=== PATIENT | female | born 1985 | race African-American/Black ===

== ENCOUNTER 2025-07-16 11:58 | Inpatient (IN) | payer OTHER ==
[~2025-07-16] VITALS: Ht 152.4 cm; Wt 97.3 kg
[2025-07-16 12:00] VITALS: O2SAT 99
[2025-07-16] MEDS: KETOROLAC 15MG/ML VIAL IV ONE (12:45)
[2025-07-16] MEDS ORDERED: MECLIZINE 25MG TABLET PO ONE (12:45)
[2025-07-16] MEDS ORDERED: CLONIDINE 0.2MG TABLET PO ONE (13:00)
[2025-07-16] MEDS: CLONIDINE 0.1MG TABLET PO SCH (13:00)
[2025-07-16] MEDS ORDERED: AZITHROMYCIN 500 MG TABLET PO ONE (13:00)
[2025-07-16 13:14] LABS: BASOPHILS % 0.8 % (0.0-2.0); EOSINOPHILS % 1.5 % (0.0-5.0); HEMATOCRIT. 33.9 % (36.0-48.0); HEMOGLOBIN. 11.0 g/dL (12.0-16.0); LYMPHOCYTES % 27.2 % (20.0-50.0); MEAN PLATELET VOLUME 7.3 fl (7.4-10.4); MONOCYTES % 7.6 % (2.0-8.0); NEUTROPHILS % 62.9 % (40.0-76.0); PLATELET 314 x1000/uL (130-400); RED BLOOD CELL COUNT 3.90 mill/uL (4.2-5.4); RED CELL DISTRIBUTION WIDTH 14.7 % (11.6-14.6)
[2025-07-16 13:29] LABS: CREATININE 0.9 mg/dL (0.6-1.0); UREA NITROGEN BLOOD 8 mg/dL (9-23)
[2025-07-16 13:30] LABS: TROPONIN I HIGH SENSITIVITY < 4 ng/L (3.0-34)
[2025-07-16 13:31] LABS: ASPARTATE AMINOTRANSFERASE 12 IU/L (<34); BILIRUBIN DIRECT 0.3 mg/dL (<=3.0); BILIRUBIN TOTAL 0.9 mg/dL (0.1-1.0); PROTEIN TOTAL 6.9 g/dL (6.0-8.3)
[2025-07-16 13:40] LABS: INR 1.0
[2025-07-16 13:45] LABS: CLARITY URINE CLEAR (CLEAR); COLOR URINE YELLOW (YELLOW); GLUCOSE URINE NEGATIVE (NEGATIVE); KETONES URINE NEGATIVE (NEGATIVE); LEUKOCYTE ESTERASE URINE NEGATIVE (NEGATIVE); NITRITE URINE NEGATIVE (NEGATIVE); OCCULT BLOOD URINE 3+ (NEGATIVE); PH URINE 8.0 (4.5-8.0); PROTEIN URINE NEGATIVE (NEGATIVE); SPECIFIC GRAVITY URINE 1.009 (1.005-1.030); UROBILINOGEN URINE 1.0 E.U./dL (0.2-1.0)
[2025-07-16 13:46] LABS: HCG SCREEN NEGATIVE
[2025-07-16] MEDS: SODIUM CHLORIDE 0.9% 1,000 ML IV ONE (13:51)
[2025-07-16 13:58] LABS: *AMPHETAMINES SCREEN URINE NEGATIVE (NEGATIVE); *BARBITURATES SCREEN URINE NEGATIVE (NEGATIVE); *BENZODIAZEPINES SCREEN URINE NEGATIVE (NEGATIVE); *COCAINE SCREEN URINE NEGATIVE (NEGATIVE); CANNABINOID URINE SCREEN NEGATIVE (NEGATIVE); ECSTASY MDMA SCREEN URINE NEGATIVE (NEGATIVE); METHADONE URINE SCREEN NEGATIVE (NEGATIVE); OPIATES URINE SCREEN NEGATIVE (NEGATIVE); PHENCYCLIDINE URINE SCREEN NEGATIVE (NEGATIVE)
[2025-07-16] MEDS: CEFTRIAXONE 1GM/50ML 50 ML IV ONE (13:58)
[2025-07-16 14:05] LABS: RBC URINE 0-2 /hpf (0-2); SQUAMOUS EPITHELIAL CELL URINE 1+ /lpf (RARE/1+); WBC URINE 0-2 /hpf (0-2)
[2025-07-16 14:06] LABS: BACTERIA URINE 1+; TRICHOMONAS URINE 1+; YEAST URINE NONE SEEN
[2025-07-16] MEDS: MECLIZINE 25MG TABLET PO SCH (14:09)
[2025-07-16 14:11] LABS: HEPATITIS A AB IGM NEGATIVE (Negative)
[2025-07-16 14:12] LABS: HEPATITIS B CORE AB IGM NEGATIVE (Negative); HEPATITIS C AB NON REACTIVE (Neg) (Negative)
[2025-07-16] MEDS: AZITHROMYCIN 500 MG TABLET PO SCH (15:06)
[2025-07-16] MEDS: METRONIDAZOLE 500MG TABLET PO ONE (16:51)
[2025-07-16 20:00] VITALS: BP 157/89; PULSE 89; RESP 18; TEMP 36.9; O2SAT 99
[2025-07-16] MEDS ORDERED: HYDROCODONE/ACETAMINOPHEN 10/325MG TABLET PO PRN (23:15)
[2025-07-16] MEDS ORDERED: NALOXONE HCL 0.4MG/ML VIAL IV PRN (23:30)
[2025-07-17] VITALS (7 sets, daily range): BP systolic 121–159; BP diastolic 76–89; PULSE 71–89; RESP 17–20; TEMP 36.4–37; O2SAT 97–99
[2025-07-17] MEDS: LOSARTAN 50 MG TABLET PO SCH (10:01)
[2025-07-17] MEDS: ASPIRIN 81MG TABLET PO SCH (10:01)
[2025-07-17] MEDS: ENOXAPARIN 40MG/0.4ML SYR SUBCUT SCH (10:02)
[2025-07-17 17:40] LABS: BASOPHILS % 1.0 % (0.0-2.0); EOSINOPHILS % 1.8 % (0.0-5.0); HEMATOCRIT. 35.0 % (36.0-48.0); HEMOGLOBIN. 11.2 g/dL (12.0-16.0); LYMPHOCYTES % 29.8 % (20.0-50.0); MEAN PLATELET VOLUME 7.9 fl (7.4-10.4); MONOCYTES % 8.0 % (2.0-8.0); NEUTROPHILS % 59.4 % (40.0-76.0); PLATELET 306 x1000/uL (130-400); RED BLOOD CELL COUNT 3.96 mill/uL (4.2-5.4); RED CELL DISTRIBUTION WIDTH 14.7 % (11.6-14.6)
[2025-07-17] MEDS: ATORVASTATIN CALCIUM 40MG TABLET PO SCH (20:54)
[2025-07-18] VITALS: BP 142/73; PULSE 75; RESP 17; TEMP 36.4; O2SAT 98
[2025-07-18 04:00] VITALS: BP 146/81; PULSE 79; RESP 17; TEMP 36.7; O2SAT 98
[2025-07-18 08:00] VITALS: BP 143/85; PULSE 68; RESP 15; TEMP 36.3; O2SAT 100
[2025-07-18] MEDS: CLOPIDOGREL 75MG TABLET PO SCH (11:17)
[2025-07-18 12:00] VITALS: BP 155/88; PULSE 79; RESP 20; TEMP 36.6; O2SAT 99
[2025-07-18 16:00] VITALS: BP 146/82; PULSE 77; RESP 18; TEMP 36.4; O2SAT 99
[2025-07-18 20:00] VITALS: BP_SYST 152; BP_SYST 157; BP_DIAS 90; BP_DIAS 92; PULSE 79; PULSE 80; RESP 16; RESP 19; TEMP 36.7; TEMP 37.4; O2SAT 100; O2SAT 99
[2025-07-19] VITALS: BP_SYST 124; BP_SYST 161; BP_DIAS 64; BP_DIAS 92; PULSE 74; PULSE 79; RESP 18; RESP 19; TEMP 36.7; O2SAT 97; O2SAT 98
[2025-07-19 04:00] VITALS: BP 143/86; PULSE 76; RESP 20; TEMP 36.8; O2SAT 96
[2025-07-19 07:35] LABS: LDL CHOLESTEROL 102.0 mg/dL (5-100); TRIGLYCERIDE 127.0 mg/dL (0-150)
[2025-07-19 08:00] VITALS: BP 140/93; PULSE 75; RESP 18; TEMP 36.4; O2SAT 97
[2025-07-19 12:00] VITALS: BP 141/81; PULSE 92; RESP 20; TEMP 36.4
[2025-07-19 16:00] VITALS: BP 139/82; PULSE 87; RESP 17; TEMP 36.3; O2SAT 99
[2025-07-19] MEDS ORDERED: LIP40 MT (17:14)
[2025-07-19] MEDS ORDERED: ASPI-1406 MT (17:14)
[2025-07-19 17:53] VITALS: BP 139/82; PULSE 87; RESP 17; TEMP 97.3
== END 2025-07-19 18:47 | disposition home or self-care (01) | DRG 45 ==
LOC: ER 11:58 → 8WST 16:10 → EDBEDREQ 17:34 → EDBEDREQTM 17:34 → ENRESERV 18:01 → ER 18:08
PROVIDERS: ADMIT Internal Medicine; ATTEND Internal Medicine
DX: I63.9 Cerebral infarction, unspecified (principal); I16.1 Hypertensive emergency; I10 Essential (primary) hypertension; E66.01 Morbid (severe) obesity due to excess calories; Z68.41 Body mass index [BMI] 40.0-44.9, adult; D64.9 Anemia, unspecified; H53.2 Diplopia; D68.61 Antiphospholipid syndrome; R53.81 Other malaise; Z79.02 Long term (current) use of antithrombotics/antiplatelets; Z79.82 Long term (current) use of aspirin; Z82.3 Family history of stroke
CPT/HCPCS: 36415; 70551; 71045; 80048; 80061; 80076; 80305; 80320; 81003; 83036; 84484; 84703; 85025; 86705; 86709; 87340; 93005; 93306; 93970; 96365; 97161; 97165; 99285; J0696; J1650; J1885; J7030; J8597; G0480